=== PATIENT | female | born 1995 | race Caucasian/White ===

== ENCOUNTER 2023-06-06 05:27 | Emergency (ER) | payer OTHER ==
[~2023-06-06] VITALS: Ht 157.5 cm; Wt 70.3 kg
[2023-06-06] MEDS ORDERED: PERCOCET 5-3251 EACH PO (11:40)
== END 2023-06-06 12:27 | disposition home or self-care (01) ==
LOC: ER 05:27
PROVIDERS: General Practice
DX: O20.9 Hemorrhage in early pregnancy, unspecified (principal); Z3A.01 Less than 8 weeks gestation of pregnancy; Z91.013 Allergy to seafood

== ENCOUNTER 2024-08-11 13:00 | Inpatient (IN) | payer OTHER ==
[~2024-08-11] VITALS: Ht 157.5 cm; Wt 78.0 kg
[~2024-08-11 13:00] MED LIST: PERCOCET 5-3251 EACH PO
[2024-08-15] VITALS (8 sets, daily range): BP systolic 102–119; BP diastolic 53–69
[2024-08-15] MEDS ORDERED: RINGERS SOLUTION,LACTATED 1,000 ML IV SCH (04:15)
[2024-08-15 04:53] LABS: HEMATOCRIT 33.5 % (36.0-45.00); HEMOGLOBIN 11.5 g/dL (12.0-15.00); MEAN CELL VOLUME 85.1 fL (80.00-100.00); MEAN CORPUSCULAR HEMOGLOBIN 29.2 pg (27.00-32.0); MEAN CORPUSCULAR HGB CONC 34.3 g/dl (32.0-36.0); PLATELET COUNT 182 K/uL (150-450); RED BLOOD COUNT 3.93 M/uL (4.00-6.00); RED CELL DISTRIBUTION WIDTH 14.1 % (11.5-14.5); URINE APPEARANCE Cloudy; URINE BILIRRUBIN Negative (NEGATIVE); URINE BLOOD Large; URINE COLOR Yellow; URINE GLUCOSE Negative (NEGATIVE); URINE KETONE Negative (NEGATIVE); URINE LEUKOCYTE Negative; URINE NITRATE Negative; URINE UROBILINOGEN 0.2 E.U./dl
[2024-08-15 04:57] LABS: URINE BACTERIA 471.2 uL (0.0-1933); URINE CAST 10.53 uL (0.0-1.40); URINE RBC 990.7 uL (0.0-20.8); URINE WBC 36.7 uL (0.0-23.2)
[2024-08-15 05:13] LABS: INR 0.97; PARTIAL THROMBOPLASTIN TIME 26.5 SECONDS (22.0-34.0); PROTHROMBIN TIME 10.6 SECONDS (9.0-11.5)
[2024-08-15] MEDS ORDERED: PROMETHAZINE HCL 25 MG/ML AMPUL IV PRN (05:15)
[2024-08-15] MEDS ORDERED: MEPERIDINE HCL/PF 50 MG/ML VIAL IV PRN (05:15)
[2024-08-15 05:18] LABS: ALBUMIN 2.6 gm/dL (3.4-5.0); BILIRUBIN TOTAL 0.22 mg/dL (0.3-1.2); CALCIUM 8.9 mg/dL (8.5-10.1); CREATININE SERUM 0.58 mg/dL (0.55-1.02); GFR 124.7; GLOBULINA 3.4 G/DL (2.4-3.5); POTASSIUM 3.82 mEq/L (3.5-5.1)
[2024-08-15 07:12] LABS: URINE PROTEIN 100 (NEGATIVE)
[2024-08-15] MEDS ORDERED: CEFAZOLIN SODIUM 1,000 MG VIAL IV SCH ×2 (09:30→10:00)
[2024-08-15] MEDS ORDERED: OXYTOCIN 500 ML IV SCH (09:30)
[2024-08-15] MEDS ORDERED: TERBUTALINE SULFATE 1 MG/ML AMPUL IV STA (12:26)
[2024-08-15] MEDS ORDERED: OXYTOCIN 1,000 ML IV SCH (15:45)
[2024-08-15] MEDS ORDERED: CHLORHEXIDINE GLUCONATE 120 ML BOTTLE TOP ONE (15:45)
[2024-08-15] MEDS ORDERED: NALOXONE HCL 0.4 MG/ML AMPUL IV ONE (15:45)
[2024-08-15] MEDS ORDERED: ERYTHROMYCIN BASE OPHT 1GM EACH TUBE OP ONE (15:45)
[2024-08-15] MEDS ORDERED: NALOXONE HCL 0.4 MG/ML AMPUL IM ONE (15:45)
[2024-08-15] MEDS ORDERED: LIDOCAINE HCL 1% 10ML VIAL IJ ONE (15:45)
[2024-08-15] MEDS ORDERED: IBUprofen 600 MG TABLET PO SCH (18:00)
[2024-08-16 00:38] VITALS: BP 112/74
[2024-08-16 08:00] VITALS: BP 107/69
[2024-08-16] MEDS ORDERED: DOCUSATE CALCIUM 240 MG CAPSULE PO SCH (09:00)
[2024-08-16 13:07] VITALS: BP 119/79
[2024-08-16 16:41] VITALS: BP 107/72
[2024-08-17 00:48] VITALS: BP 106/67
[2024-08-17 08:49] VITALS: BP 113/76; BP 114/78
== END 2024-08-17 14:49 | disposition home or self-care (01) | DRG 768 ==
LOC: LDR 08-15 03:56 → OB/GYN 08-15 15:27 → LDR 08-26 13:00
PROVIDERS: ADMIT Specialist; ATTEND Specialist
PROC: 10E0XZZ Delivery of Products of Conception, External Approach (ICD-10-PCS; principal; 2024-08-15)
PROC: 0DQR0ZZ Repair Anal Sphincter, Open Approach (ICD-10-PCS; 2024-08-15)
PROC: 0W8NXZZ Division of Female Perineum, External Approach (ICD-10-PCS; 2024-08-15)
PROC: 4A1HXCZ Monitoring of Products of Conception, Cardiac Rate, External Approach (ICD-10-PCS; 2024-08-15)
DX: O70.21 Third degree perineal laceration during delivery, IIIa (principal); Z37.0 Single live birth; Z3A.38 38 weeks gestation of pregnancy; Z20.822 Contact with and (suspected) exposure to COVID-19